=== PATIENT | male | born 1955 | race Caucasian/White ===

== ENCOUNTER 2023-11-01 02:45 | Emergency (ER) | payer OTHER, SELFPAY ==
[2023-11-01 02:48] VITALS: BP 154/102
[2023-11-01] MEDS: DUONEB 3 ML INH ×2 (03:57→04:34)
[2023-11-01 04:31] VITALS: BP 131/87
[2023-11-01] MEDS: DELTASONE 40 MG PO (04:34)
--- NOTE | 2023-11-01 04:48 | ED.GENMED ---
History of Present Illness
General
Chief Complaint: Breathing Problem
Source: patient
Exam Limitations: none
Time Seen by Provider: 11/01/23 03:05
Travel History
Have you had any contact with someone who has COVID-19?: Yes
Comment: has covid
Do you have any symptoms of coronavirus? Fever > 100 degrees, chills, cough, shortness of breath, sore throat, loss of taste or smell, muscle aches, or headache?: Yes
Symptoms:: see triage
History of Present Illness
History of Present Illness:
68-year-old male with a history of asthma, [place], who presents feeling short of breath. Diagnosed with COVID on October 30. States started to just not feel well. Patient is on 50 mg of prednisone for rheumatoid. Denies chest pain. No leg swelling.
Past History
Past History
ED Past Medical History: Asthma, GERD, HTN, Hypercholesterolemia, [place], Psychiatric (Anxiety disorder, ) and Other (Eosinophilic esophagitis)
ED Past Surgical History: Cardiac (Stent), Orthopedic (see HPI, Right knee surgery) and Urological (Left kidney removed)
Social History
Tobacco: Former smoker
Alcohol: None
Personal: Other (Seperated)
Living: alone
Employment: Employed
Phy Exam
Physical Exam
Physical Exam:
CONSTITUTIONAL Patient alert and oriented to person, place and time. Well-appearing. Vital signs reviewed.
HEAD atraumatic, normocephalic.
EYES eyelids normal to inspection, Pupils equally round and reactive to light, Extraocular muscles intact, Conjunctiva normal, Sclera normal.
NECK normal range of motion, Trachea midline, no jugular venous distention.
RESPIRATORY CHEST No respiratory distress noted, Chest expansion equal, mild expiratory wheeze.
CARDIOVASCULAR regular rate and rhythm, Heart sounds normal.
ABDOMEN abdomen nontender, Bowel sounds normal. No distention.
BACK normal inspection, no obvious deformities
UPPER EXTREMITY range of motion normal, Motor strength normal, no cyanosis, no edema.
LOWER EXTREMITY range of motion normal, Motor strength normal, no cyanosis, no edema.
NEURO Speech normal, No focal motor deficits, [place] coma scale 15, Memory normal, Cranial Nerves intact to screening exam.
SKIN skin warm, dry, and normal in color.
PSYCHIATRIC patient oriented to person place and time, Normal affect.
Scores
Heart Failure Risk
Heart Failure Risk Score: Not Applicable
Course
Orders/Labs/Results
Orders:
Orders
11/01/23 02:59
Influenza A+B Rapid Molecular Urgent
ANDRY Source: Nasal Swab
Specimen Description:
11/01/23 03:04
CR Chest - 2 Views Urgent
Comment:
Reason For Exam: cough, covid pos
11/01/23 03:40
Ipratropium/Albuterol Sulfate [Duoneb] 3 ml INH R NOW STA
11/01/23 04:31
Ipratropium/Albuterol Sulfate [Duoneb] 3 ml INH R NOW STA
Prednisone [Deltasone] 40 mg PO NOW STA
11/01/23 05:41
EKG [Electrocardiogram (*1)] Urgent
Reason for Study: Shortness of Breath
EKG- Treatment ONCE
Vital Signs
Initial and Last Documented VS:
Initial Vital Signs
Temp Pulse Resp BP Pulse Ox
100.3 F 108 24 154/102 96
11/01/23 02:48 11/01/23 02:48 11/01/23 02:48 11/01/23 02:48 11/01/23 02:48
Last Documented Vital Signs
Temp Pulse Resp BP Pulse Ox
100.3 F 95 18 131/87 95
11/01/23 02:48 11/01/23 04:31 11/01/23 04:31 11/01/23 04:31 11/01/23 06:31
MDM/Problems Addressed
MDM/Problems Addressed:
Reactive airway disease, COVID-19
*Radiology
Radiology exam reviewed: all reviewed NAD by ED Provider
*Pulse Oximetry
Patient hypoxic: yes (Mild)
*EKG
Interpreted by ED Provider?: Yes
Interpretation: abnormal
Rate: normal
Rhythm: sinus and PVC's
[place]: normal axis
Interval: long QT
QRS Pattern: normal QRS
Ischemia: non-specific ST changes
*Property Utilization Officer Interpretation
Rate: normal
Interpretation: normal
Rhythm: sinus
*Critical Care Note
Total Time (30-74mins, 75-104mins- exclusive of procedures): Not Applicable
Data Reviewed
Review of Other/Old Records Reveals: Discharge Summary (Discharge summary reviewed from October 2022)
Source: patient
Prescriptions/Medications Considered But Not Given:
Considered antibiotics but chest x-ray negative for infiltrate
Patient Management
Escalation/DeEscalation of care consider admission/obs:
Patient reassessed several times. Does feel little bit better. Still a little bit of tightness. Check EKG to be sure. Will expand steroids. Nebulizer provided. Pulse ox ranging from 93 to 96%. I do think trial of outpatient management is
reasonable. Continue every 4 hours nebs and expand steroids. Patient is already anticoagulated so no clinical concern at this time for pulmonary embolism
ED Attending Note
-
Portions of this chart may have been created with voice recognition software.� Occasional wrong word or��sound alike� substitutions may have occurred due to the inherent limitations of voice recognition software.
Discharge Plan
Departure
Patient Disposition: Home (Routine Discharge)
Date of Disposition: 11/01/23
Time of Disposition: 06:00
Patient with high blood pressure during this ER visit?: No
Discharge Problem:
COVID-19, Asthma
Instructions: Asthma, Adult (DC), Acute Bronchitis, Adult (DC), COVID-19 (DC)
Prescriptions:
New
prednisone 10 mg Tablet
See Rx Instructions .ROUTE .COMPLEX Qty: 45 0RF
Rx Instructions:
Take By Mouth:
50 mg daily x3 days, 40 mg daily x3 days,
30 mg daily x3 days, 20 mg daily x3 days,
10 mg daily x3 days
albuterol sulfate 2.5 mg /3 mL (0.083 %) solution for nebulization
2.5 mg inhalation Q4H PRN (Reason: shortness of breath or wheezing) Qty: 180 0RF
No Action
albuterol sulfate [ProAir HFA] 8.5 GM HFA aerosol inhaler
2 puff inhalation Q4HPRN PRN (Reason: sob.wheezing)
Budesonide
1 vial PO BID
montelukast 10 MG tablet
10 mg PO QPM Qty: 30 0RF
fluticasone furoate-vilanterol [Breo Ellipta] 1 EACH blister with device
1 ea IH DAILY
Brilinta 90 mg Tablet
90 mg PO BID Qty: 60 11RF
atorvastatin 80 mg Tablet
80 mg PO QPM Qty: 90 3RF
lisinopril 10 mg Tablet
10 mg PO DAILY Qty: 90 3RF
hydroxychloroquine 200 mg Tablet
400 mg PO HS Qty: 1 0RF
Eliquis 5 mg tablet
5 mg PO BID Qty: 60 5RF
esomeprazole magnesium [Nexium] 40 mg Capsule,Delayed Release(Dr/Ec)
40 mg PO DAILY
metoprolol succinate 50 mg tablet extended release 24 hr
100 mg PO BID
Referrals:
UNKNOWN - PT NOT,INTERVIEWE [Family Provider] -
Activity Restrictions/Additional Instructions:
Return immediately for increased work of breathing, shortness of breath, coughing up blood, chest pain or any other concerns. Please take vitamin C 2000 mg 3 times a day. Please take 2000 international units of vitamin D daily. Please see your
doctor in the next 3 to 5 days for follow-up and reevaluation. Use albuterol every 4 hours as discussed.
Interventions
Interventions:
*Risk Screen - Suicide Last Done: 11/01/23 02:48
*General Assessment Last Done: 11/01/23 02:48
*Neglect/Abuse Screening Last Done: 11/01/23 02:48
ED- Fall Risk Assessment Last Done: 11/01/23 02:48
*ED COVID-19 Vaccine History Last Done: 11/01/23 02:48
*Nursing Disposition Last Done: 11/01/23 06:31
ED- Cardiac Assessment Last Done: 11/01/23 04:03
ED- Pulmonary Assessment Last Done: 11/01/23 04:03
Discharge Date and Time
Discharge Date/Time: 11/01/23 06:32
== END 2023-11-01 06:32 | disposition home or self-care (01) ==
LOC: EMR 02:45
PROVIDERS: EMERGENCY PHYSICIAN Emergency Medicine
DX: U07.1 COVID-19 (principal); J45.909 Unspecified asthma, uncomplicated; Z87.891 Personal history of nicotine dependence; Z95.5 Presence of coronary angioplasty implant and graft
CPT/HCPCS: 99285; 94640; 71046; 87502; 93005

== ENCOUNTER 2024-02-09 21:14 | Emergency (ER) | payer OTHER, SELFPAY ==
[2024-02-09 21:16] VITALS: BP 176/105
--- NOTE | 2024-02-09 21:33 | ED.GENMED ---
History of Present Illness
General
Chief Complaint: Heart Rate Problem
Source: patient
Exam Limitations: none
Time Seen by Provider: 02/09/24 21:30
Travel History
Have you had any contact with someone who has COVID-19?: No
Do you have any symptoms of coronavirus? Fever > 100 degrees, chills, cough, shortness of breath, sore throat, loss of taste or smell, muscle aches, or headache?: No
History of Present Illness
History of Present Illness:
68-year-old male totally asymptomatic was checking his blood pressure routinely today. Typically checks it every 5 to 7 days. Initial blood pressure was in the 1 40-90 range. So over the next 2 blood pressures however his monitor recognized an
irregular heartbeat in the 80s or low 90s. Again he was asymptomatic without chest pain shortness of breath syncope or even palpitations. He then kept checking his blood pressure with the last 1 a diastolic of 112. He talked to his sister and she
recommended evaluation. Again he is totally asymptomatic. He is on Cipro currently for a prostatitis
Past History
Past History
ED Past Medical History: Asthma, CAD, GERD, HTN, Hypercholesterolemia, [place], Psychiatric (Anxiety disorder, ) and Other (Eosinophilic esophagitis)
ED Past Surgical History: Cardiac (Stent), Orthopedic (see HPI, Right knee surgery) and Urological (Left kidney removed)
Social History
Tobacco: Former smoker
Alcohol: None
Personal: Other (Seperated)
Living: alone
Employment: Employed
Review of Systems
Review of Systems
All Other Systems: Not applicable
Constitutional: Denies fever
Respiratory: Reports no symptoms
Cardiac: Denies chest pain, palpitations or syncope
ABD/GI: Reports no symptoms
Phy Exam
Physical Exam
Physical Exam:
GENERAL: Alert and oriented in no apparent distress
EYE: Orbits normal.
NECK: Supple, no thyroid palpable
CARDIAC: Regular rate and rhythm without any obvious murmurs.
LUNGS: Clear breath sounds,normal
ABDOMEN: Soft, without focal tenderness or distention
NEUROLOGICAL: Alert and oriented , grossly non-focal
SKIN: Warm and dry, no rash or lesion, no discoloration, skin intact.
MUSCULOSKELETAL: No edema,no deformity.Good color
PSYCH: Normal and appropriate interaction.
Course
Orders/Labs/Results
Orders:
Orders
02/09/24 21:20
ECG [Electrocardiogram (*1)] Urgent
Reason for Study: Tachycardia
EKG- Treatment ONCE
02/09/24 21:51
Complete Blood Count/With Diff Urgent
Comprehensive Metabolic Panel Urgent
02/09/24 22:52
Potassium Chloride 10% Elixir [KCl Elixir] 40 meq PO NOW STA
02/09/24 23:01
Cefdinir [Omnicef] 300 mg PO NOW STA
Abnormal Lab Results
02/09/24
21:51
RBC 4.39 L 10^6/uL
(4.70-6.10)
Hct 38.6 L %
(39.0-52.0)
Absolute Lymphs (auto) 1.1 L 10^3/uL
(1.2-3.4)
Absolute Monos (auto) 0.7 H 10^3/uL
(0.1-0.6)
Lymphocytes % 18.7 L %
(20.5-51.1)
Monocytes % 12.8 H %
(1.7-9.3)
Potassium 3.2 L mmol/L
(3.5-5.1)
BUN 22 H mg/dl
(9-20)
ALT 70 H U/L
(0-50)
02/09/24 21:51
02/09/24 21:51
Vital Signs
Initial and Last Documented VS:
Initial Vital Signs
Temp Pulse Resp BP Pulse Ox
98.8 F 102 20 176/105 99
02/09/24 21:16 02/09/24 21:16 02/09/24 21:16 02/09/24 21:16 02/09/24 21:16
Last Documented Vital Signs
Temp Pulse Resp BP Pulse Ox
98.8 F 84 26 148/88 99
02/09/24 21:16 02/09/24 22:45 02/09/24 22:45 02/09/24 22:00 02/09/24 22:45
MDM/Problems Addressed
Differential Diagnosis Includes:
Patient asymptomatic. Monitor showing an irregular heartbeat. Not tachycardic during this irregular heartbeat. Although this could have been brief PAF, given the lack of tachycardia lack of symptoms I suspect it was picking up PVCs which she has
is occasionally. EKG is normal with occasional PVCs. We will check his electrolytes. He is on Cipro for an ongoing prostatitis. QTc corrected is 489. Would consider stopping the Cipro and changing antibiotics.
*Pulse Oximetry
Patient hypoxic: no
*EKG
Interpreted by ED Provider?: Yes
Interpretation: abnormal
Comparison EKG: no changes
Heart Rate: 92
Rate: normal
Rhythm: sinus and PVC's
[place]: normal axis
Interval: normal interval
QRS Pattern: normal QRS
Ischemia: no ischemia
*Critical Care Note
Total Time (30-74mins, 75-104mins- exclusive of procedures): Not Applicable
Data Reviewed
Review of Other/Old Records Reveals: Labs and Testing
Update Note
Update Note:
Patient is remained asymptomatic throughout his ER stay. Blood pressures in the 140s over 80s. Mild hypokalemia. Mild QT prolongation. Patient has been treated with Cipro although I feel is very unlikely this had anything to do with any of his
issues this evening, we will stop the Cipro. Would like to use Bactrim as an alternative however Bactrim also interacts with the ARB's. Will reluctantly use a cephalosporin.
ED Attending Note
-
Portions of this chart may have been created with voice recognition software.� Occasional wrong word or��sound alike� substitutions may have occurred due to the inherent limitations of voice recognition software.
Discharge Plan
Departure
Patient Disposition: Home (Routine Discharge)
Date of Disposition: 02/09/24
Time of Disposition: 23:03
Patient with high blood pressure during this ER visit?: Yes
Discharge Problem:
Elevated blood pressure readings, PVCs, Mild hypokalemia, Mild QT prolongation, Ongoing prostatitis
Instructions: Ventricular premature beats, Hypokalemia, BLOOD PRESSURE
Prescriptions:
New
cefdinir 300 mg capsule
300 mg PO BID 7 Days Qty: 14 0RF
No Action
albuterol sulfate [ProAir HFA] 8.5 GM HFA aerosol inhaler
2 puff inhalation Q4HPRN PRN (Reason: sob.wheezing)
Budesonide
1 vial PO BID
montelukast 10 MG tablet
10 mg PO QPM Qty: 30 0RF
fluticasone furoate-vilanterol [Breo Ellipta] 1 EACH blister with device
1 ea IH DAILY
Brilinta 90 mg Tablet
90 mg PO BID Qty: 60 11RF
atorvastatin 80 mg Tablet
80 mg PO QPM Qty: 90 3RF
lisinopril 10 mg Tablet
10 mg PO DAILY Qty: 90 3RF
hydroxychloroquine 200 mg Tablet
400 mg PO HS Qty: 1 0RF
Eliquis 5 mg tablet
5 mg PO BID Qty: 60 5RF
esomeprazole magnesium [Nexium] 40 mg Capsule,Delayed Release(Dr/Ec)
40 mg PO DAILY
metoprolol succinate 50 mg tablet extended release 24 hr
100 mg PO BID
prednisone 10 mg Tablet
See Rx Instructions .ROUTE .COMPLEX Qty: 45 0RF
Rx Instructions:
Take By Mouth:
50 mg daily x3 days, 40 mg daily x3 days,
30 mg daily x3 days, 20 mg daily x3 days,
10 mg daily x3 days
albuterol sulfate 2.5 mg /3 mL (0.083 %) solution for nebulization
2.5 mg inhalation Q4H PRN (Reason: shortness of breath or wheezing) Qty: 180 0RF
Referrals:
Vinny Cross MD [Family Provider] - Follow up in 2-3 days
Activity Restrictions/Additional Instructions:
Repeat your potassium in a week or 2
Stop the Cipro. Start Omnicef
Follow-up the mild QT prolongation with your primary physician. You just need to be careful with certain medications. If you ever are prescribed the medication mentioned that your QT is mildly prolonged
Interventions
Interventions:
*Risk Screen - Suicide Last Done: 02/09/24 21:16
*General Assessment Last Done: 02/09/24 21:16
*Neglect/Abuse Screening Last Done: 02/09/24 21:16
*Nursing Disposition Last Done: 02/09/24 23:24
ED- Cardiac Assessment Last Done: 02/09/24 21:39
ED- Pulmonary Assessment Last Done: 02/09/24 21:39
Discharge Date and Time
Discharge Date/Time: 02/09/24 23:25
Print Language: ROMANIAN
[2024-02-09 21:41] VITALS: BP 160/98
[2024-02-09 21:58] LABS: % Basophils 0.3 % (0-2); % Immature Granulocytes 0.2 % (0-0.5); % Lymphocytes 18.7 % (20.5-51.1); % Monocytes 12.8 % (1.7-9.3); Absolute Lymphocytes 1.1 10^3/uL (1.2-3.4); Absolute Monocytes 0.7 10^3/uL (0.1-0.6); Absolute Neutrophils 3.9 10^3/uL (1.4-6.5); Hematocrit 38.6 % (39.0-52.0); Hemoglobin 13.2 g/dL (13.0-18.0); Mean Corp Hgb Conc. 34.2 g/dL (33.0-37.0); Mean Corpuscular Hgb 30.1 pg (27.0-31.0); Mean Corpuscular Volume 87.9 fL (80.0-94.0); Mean Platelet Volume 10.2 fL (7.4-10.4); Nucleated Red Blood Cells % 0 % (-); Platelet Count 203 10^3/uL (130-400); Red Blood Cell Count 4.39 10^6/uL (4.70-6.10); Red Cell Dist. Width 13.3 % (11.5-14.5); White Blood Cell Count 5.8 10^3/uL (4.8-10.8)
[2024-02-09 22:00] VITALS: BP 148/88
[2024-02-09 22:16] LABS: ALT (SGPT) 70 U/L (0-50); AST (SGOT) 48 U/L (17-59); Albumin 3.9 g/dl (3.5-5.0); Alkaline Phosphatase 100 U/L (38-126); Blood Urea Nitrogen 22 mg/dl (9-20); Calcium 8.6 mg/dl (8.4-10.2); Carbon Dioxide 28 mmol/L (22-30); Chloride 105 mmol/L (98-107); Glucose 99 mg/dl (70-99); Potassium 3.2 mmol/L (3.5-5.1); Sodium 140 mmol/L (135-145); Total Bilirubin 0.6 mg/dl (0.2-1.3); Total Protein 6.6 g/dl (6.3-8.2); eGFR > 60.00
[2024-02-09] MEDS: KCL ELIXIR 40 MEQ PO (23:16)
[2024-02-09] MEDS: OMNICEF 300 MG PO (23:16)
== END 2024-02-09 23:25 | disposition home or self-care (01) ==
LOC: EMR 21:14
PROVIDERS: EMERGENCY PHYSICIAN Emergency Medicine; FAMILY PHYSICIAN Internal Medicine
DX: I10 Essential (primary) hypertension (principal); I49.3 Ventricular premature depolarization; E87.6 Hypokalemia; R94.31 Abnormal electrocardiogram [ECG] [EKG]; N41.9 Inflammatory disease of prostate, unspecified; I49.9 Cardiac arrhythmia, unspecified; J45.909 Unspecified asthma, uncomplicated; I25.10 Atherosclerotic heart disease of native coronary artery without angina pectoris; K21.9 Gastro-esophageal reflux disease without esophagitis; E78.00 Pure hypercholesterolemia, unspecified; I25.2 Old myocardial infarction; F41.9 Anxiety disorder, unspecified; K20.0 Eosinophilic esophagitis; Z87.891 Personal history of nicotine dependence; Z95.5 Presence of coronary angioplasty implant and graft
CPT/HCPCS: 99283; 80053; 85025; 93005

== ENCOUNTER → 2024-06-15 09:55 | Outpatient (REF) | payer OTHER, SELFPAY | LOC: RAD 09:55 | PROVIDERS: ATTENDING PHYSICIAN Internal Medicine Endocrinology, Diabetes & Metabolism; FAMILY PHYSICIAN Internal Medicine | DX: E03.9 Hypothyroidism, unspecified (principal) | CPT/HCPCS: 76536 ==

== ENCOUNTER → 2024-07-01 14:05 | Outpatient (REF) | payer OTHER, SELFPAY | LOC: HWRAD 14:05 | PROVIDERS: ATTENDING PHYSICIAN Specialist; FAMILY PHYSICIAN Internal Medicine | DX: N50.89 Other specified disorders of the male genital organs (principal) | CPT/HCPCS: 76870; 93976 ==

== ENCOUNTER → 2024-09-01 07:28 | Outpatient (REF) | payer OTHER, SELFPAY ==
[2024-09-01 08:00] VITALS: BP 149/89
== END ==
LOC: RADI 07:28
PROVIDERS: ATTENDING PHYSICIAN Internal Medicine Endocrinology, Diabetes & Metabolism; FAMILY PHYSICIAN Internal Medicine
DX: E04.2 Nontoxic multinodular goiter (principal)
CPT/HCPCS: 88173; 88305; 10005; 10006

== ENCOUNTER 2024-12-13 08:52 | Day surgery (SDC) | payer OTHER, SELFPAY ==
[2024-11-02 12:46] VITALS: BMI 25.3
[2024-11-29 12:42] VITALS: BMI 24.9
--- NOTE | 2024-12-13 11:56 | ITS.CL.IMPLP ---
Weld Engineer - Implant Loop
Implant Loop
Procedure Report:
Date of Procedure: December 13, 2024.
Procedure: Insertable Loop Recorder Implant.
Indication: Atrial fibrillation monitoring.
Performing physician: Flavio Obando MD, [facility].
Implant: [employer]tronic; Reveal LINQOII; Model# [id number]; Serial# [id number].
Technique: The patient was prepped and draped in the usual fashion. A time-out was performed. No intravenous sedation was administered. Local anesthetic was applied to the left pre-pectoral subcutaneous tissue. Using the insertion kit an incision
was made left of the midline in the fourth intercostal space and the device was implanted subcutaneously and directed towards the nipple. Hemostasis was excellent. The skin was closed with steri-strips. The estimated blood loss was less than 0.5 ml.
There were no complications. No fluoroscopy. R waves measured 0.4 mV and P waves were visible.
Final Programming: Detections: Afib, tachy at 160 bpm, dung at 30 bpm, pause at 3 sec.
Conclusion: Uncomplicated insertable loop implant.
Recommendation: Routine post-insertable loop care. The device is MRI conditional without a waiting period and up to 3 Pat.
cc: Erickson Felix MD, PhD and Vinny Cross MD.
== END 2024-12-13 10:26 | disposition home or self-care (01) ==
LOC: CATH 08:52
PROVIDERS: ATTENDING PHYSICIAN Internal Medicine Cardiovascular Disease; FAMILY PHYSICIAN Internal Medicine; OTHER PHYSICIAN Student in an Organized Health Care Education/Training Program
DX: Z09 Encounter for follow-up examination after completed treatment for conditions other than malignant neoplasm (principal); I48.0 Paroxysmal atrial fibrillation; E78.5 Hyperlipidemia, unspecified; I25.5 Ischemic cardiomyopathy; Z95.5 Presence of coronary angioplasty implant and graft; I25.10 Atherosclerotic heart disease of native coronary artery without angina pectoris; I25.2 Old myocardial infarction; K21.9 Gastro-esophageal reflux disease without esophagitis; G47.33 Obstructive sleep apnea (adult) (pediatric); Z87.891 Personal history of nicotine dependence; J45.20 Mild intermittent asthma, uncomplicated; E03.9 Hypothyroidism, unspecified; M10.9 Gout, unspecified; M05.9 Rheumatoid arthritis with rheumatoid factor, unspecified; Z79.51 Long term (current) use of inhaled steroids; Z79.890 Hormone replacement therapy; Z79.899 Other long term (current) drug therapy; Z79.52 Long term (current) use of systemic steroids; Z79.69 Long term (current) use of other immunomodulators and immunosuppressants; I11.0 Hypertensive heart disease with heart failure; I50.32 Chronic diastolic (congestive) heart failure; Z90.5 Acquired absence of kidney
CPT/HCPCS: 33285; 93005; C1764

== ENCOUNTER → 2025-06-16 07:30 | Outpatient (REF) | payer OTHER, SELFPAY | LOC: MRI 07:30 | PROVIDERS: ATTENDING PHYSICIAN Specialist; FAMILY PHYSICIAN Internal Medicine | DX: E26.9 Hyperaldosteronism, unspecified (principal); D30.02 Benign neoplasm of left kidney | CPT/HCPCS: 74183; A9585 ==

== ENCOUNTER → 2025-07-08 12:40 | Outpatient (REF) | payer OTHER, SELFPAY | LOC: RAD 12:40 | PROVIDERS: ATTENDING PHYSICIAN Internal Medicine Endocrinology, Diabetes & Metabolism; FAMILY PHYSICIAN Internal Medicine | DX: E03.9 Hypothyroidism, unspecified (principal); E04.2 Nontoxic multinodular goiter | CPT/HCPCS: 76536 ==